=== PATIENT | female | born 1995 | race Caucasian/White ===

== ENCOUNTER 2024-02-23 04:31 | Day surgery (SDC) | payer OTHER ==
[2024-02-17 15:27] VITALS: BMI 23.6
[2024-02-23] MEDS: ceFAZolin SODIUM 1 GM VIAL IVPB ONE
[~2024-02-23 04:31] MED LIST: LACTATED RINGERS SOLUTION 1,000 ML IV SCH; ONDANSETRON 4 MG/2 ML VIAL IVPUSH PRN; oxyCODONE HCL 5 MG TABLET PO PRN
[2024-02-23] MEDS ORDERED: LIDOCAINE HCL 1%, 10 MG/ML (20ML VIAL) ONE (07:58)
[2024-02-23] MEDS ORDERED: ISOSULFAN BLUE 50 MG/5 ML VIAL SQ ONE (07:58)
[2024-02-23] MEDS ORDERED: LIDOCAINE HCL/PF 2% SDV 5ML VIAL ONE (08:48)
[2024-02-23] MEDS ORDERED: PROPOFOL 40 ML ONE (08:48)
[2024-02-23] MEDS ORDERED: SUCCINYLCHOLINE CHLORIDE 200 MG/10 ML SYRINGE ONE (08:49)
[2024-02-23] MEDS ORDERED: ONDANSETRON 4 MG/2 ML VIAL ONE (08:49)
[2024-02-23] MEDS ORDERED: DEXAMETHASONE SOD PHOSPHATE 4 MG/1 ML VIAL ONE (08:53)
[2024-02-23] MEDS ORDERED: FENTANYL CITRATE/PF 50 MCG/ML VIAL ONE ×2 (08:54→10:09)
[2024-02-23] MEDS ORDERED: MIDAZOLAM HCL 2 MG/2 ML SINGLE DOSE VIAL ONE (08:54)
[2024-02-23] MEDS ORDERED: SEVOFLURANE 250 ML BTL ONE (08:56)
[2024-02-23] MEDS ORDERED: ACETAMINOPHEN INJECTION 100 ML IVPB ONE (08:59)
[2024-02-23] MEDS: LIDOCAINE HCL 1%, 10 MG/ML (20ML VIAL) INF ONE ×3 (09:40→09:41)
[2024-02-23 11:27] VITALS: RESP 18
[2024-02-23 11:36] VITALS: TEMP 97.8
[2024-02-23 13:14] VITALS: BP 119/65; PULSE 69
== END 2024-02-23 12:55 | disposition home or self-care (01) ==
LOC: JASU-SURG 04:31
PROVIDERS: ATTEND Surgery
PROC: 0HBT0ZZ Excision of Right Breast, Open Approach (ICD-10-PCS; principal; 2024-02-23 09:00)
DX: D24.1 Benign neoplasm of right breast (principal)
CPT/HCPCS: 81025; 86850; 86900; 86901; 88307-TC; 94760; J0131